=== PATIENT | male | born 2000 | race Hispanic/Latino ===

== ENCOUNTER 2023-01-05 15:37 | Emergency (ER) | payer BC ==
--- OUTSIDE RECORDS SUMMARY | 2023-01-05 15:57 | XMS REPORT | Continuity of Care Document ---
:2000 Author Organization [facility] t Address [address] [facility] [address] [place] [address] Care Team Providers Name Role Phone KAY SCHULZ Primary Care Physician Unavailable KAY SCHULZ Attending Clinician Unavailable Lab, Ang Ayush Graham Attending Clinician Unavailable Zeus COMPUTER ENGINEERING TECHNOLOGISTKay Wilson Attending Clinician Pob, [facility] Main Attending Clinician Unavailable Corry Dan MD Attending Clinician CORRY DAN Attending Clinician Unavailable Doctor Unassigned, [place] Attending Clinician Unavailable DOMINGO KEENAN Attending Clinician Unavailable Lonnie Rosales MD Attending Clinician Domingo Keenan MD Attending Clinician Nurse, Angelo Graham Attending Clinician Unavailable CHAUNCEY EDWARD Attending Clinician Unavailable Chauncey Edward MD Attending Clinician Melissa Regalado MD Attending Clinician MELISSA REGALADO Attending Clinician Unavailable Dominga Hernandez MD Attending Clinician Abigail Stark MD Attending Clinician Unknown, Attending Attending Clinician Unavailable Gm Carr Attending Clinician Salvador Bates Attending Clinician [phone] Dhaval Paul Attending Clinician Payers Payer Name Policy Type Policy Number Effective Date Expiration Date S angelito [employer] [place] - [id number] 2021 00:00:00 OUT OF STATE Problems Condition Condition Condition Status Onset Resolution Last Treating Co mments Source Name Details Category Date Date Treatment Clinician Date Need for Need for Disease Active Unive rs hepatitis hepatitis 12-27 ity of C C 00:00: [place] screening screening 00 Medi sergio test test Branch Wellness Wellness Disease Active Unive rs examinatio examinatio 12-27 it y of n n 00:00: [place] 00 Medical Branch Encounter Encounter Disease Active Uni vers for for 12-27 ity of antibody antibody 00:00: [place] response response 00 Medica l examinatio examinatio Br anch n n Screening- Screening- Disease Active U nivers pulmonary pulmonary 12-27 ity of TB TB 00:00: [place] 00 Medical Branch M23.351 - M23.351 - Diagnosis Active 2016-12-21 Memoria "OTH "OTH 12-08 11:15:00 l MENISCUS MENISCUS 00:01: DONALD Ross, 00 POSTERIO POSTERIO Active 12/08/2016 [facility] HEAD/NECK HEAD/NECK Diagnosis Active 2014-11-11 Memoria INJURY INJURY - 01:38:00 l Active 00:00: [place] 11/10/2014 00 [place] FALL- ARM FALL- Diagnosis Active 2014-05-29 Memoria PAIN ARM PAIN - 17:38:00 l Active 00:00: Ady 05/29/2014 00 [place] 724.5 BACK 724.5 Diagnosis Active 2013-042014-03-09 Memoria PAIN BACK PAIN 1- 08:58:00 l Active 00:00: [place] 02/26/2014 00 [place] FALL FALL Diagnosis Active 2013-042014-02-01 Mem oria Active 10:03:00 l 02/01/2014 00:00: Carlitos farrell 00 [facility] 286.9 286.9 Diagnosis Active 2012-042013-02-17 Mem oria Active 04-19 12:53:00 l 02/17/2013 00:00: Carlitos farrell [address] CERUMEN CERUMEN Diagnosis Active 2012-042013-04-14 Memoria IMPACTION, IMPACTION, 0-15 10:02:00 l NOSEBLEEDS NOSEBLEEDS 00:00: He rmsmith , ACUTE , ACUTE 00 DIGNA DIGNA Active 01/28/2013 [facility] Asthma Asthma Problem Resolve 2016-12-24 Mem oria (disorder) (disorder) d 01:15:49 l Resolved Ady Problem 12/24/2016 [facility], OPID [facility],[facility] Nosebleed/ Nosebleed Problem Active 2016-12-24 Memoria epistaxis /epistaxis 01:15:49 l symptom symptom Ady (finding) (finding) Active Problem 12/24/2016 [facility], SHASHI Donaldsonrey toth,[facility], [facility] COAGULAT COAGULAT Diagnosis Active 2013-02-17 Memoria DEFECT DEFECT 12:53:00 l NEC/NOS NEC/NOS Ady Active [facility] IMPACTED IMPACTED Diagnosis Active 2013-04-14 Memoria CERUMEN CERUMEN 10:02:00 l Active Carlitos farrell [facility] EPISTAXIS EPISTAXIS Diagnosis Active 2013-04-14 Memoria Active 10:02:00 l [facility] ACUTE ACUTE Diagnosis Active 2013-04-14 Mem oria TONSILLITI TONSILLITI 10:02:00 l S S Active Ady [facility] ANKLE ANKLE Diagnosis Active 2013-12-12 Mem oria Active 22:29:00 l [facility] BACK BACK Diagnosis Active 2014-06-10 Mem oria Active 16:48:00 l [facility] BACKACHE BACKACHE Diagnosis Active 2014-03-09 Memoria NOS NOS Active 08:58:00 l [facility] BACK PAIN BACK PAIN Diagnosis Active 2014-04-01 Memoria Active 16:49:00 l [facility] History of Past Illness Condition Condition Condition Status Onset Resolution Last Treating Co mments Source Name Details Category Date Date Treatment Clinician Date Discharge Discharge Problem 2014-11-14 2014-11-14 Memoria Diagnosis: Diagnosis: 11-11 03:33:31 03:33:31 l Minor head Minor head 05:00: He r[place] injury injury 00 without without loss of loss of consciousn consciousn ess ess 11/11/2014 5 [facility] Discharge Discharge Problem 2014-11-14 2014-11-14 Memoria Diagnosis: Diagnosis: 11-11 03:33:31 03:33:31 l Neck pain, Neck pain, 05:00: [place] r[place] musculoske musculoske 00 letal letal 11/11/2014 5 [facility] Discharge Discharge Problem 2014-05-31 2014-05-31 Memoria Diagnosis: Diagnosis: 05-29 20:35:27 20:35:27 l Closed Closed 06:00: [place] Salter-Matti Salter-Matti 00 ris Type ris Type II physeal II physeal fracture fracture of upper of upper end of end of right right radius radius 05/29/2014 05/31/2014 [facility] Discharge Discharge Problem 2013-042014-02-04 2014-02-04 Memoria Diagnosis: Diagnosis: 0- 01:14:00 01:14:00 l Accidental Accidental 05:00: He r[place] fall fall 00 02/01/2014 02/04/2014 [facility] Discharge Discharge Problem 2013-042014-02-04 2014-02-04 Memoria Diagnosis: Diagnosis: 0-19 01:14:00 01:14:00 l Acute neck Acute neck 05:00: [place] r[place] pain pain 00 02/01/2014 02/04/2014 [facility] Allergies, Adverse Reactions, Alerts Allergy Allergy Status Severity Reaction(s) Onset Inactive Treating Comm ents Source Name Type Date Date Clinician NO KNOWN Drug Active Univers ALLERGIE Class ity of [facility] Social History Social Habit Start Date Stop Date Quantity Comments Source History SDOH University o f Alcohol Std Drinks [facility] Branch History [facility] University o f Alcohol Binge [place] [facility] Gender identity Universit y of [facility] Sexual orientation Univer sity [facility] Exposure to 2022-07-10 2022-07-20 Not sure University of SARS-CoV-2 (event) 00:00:00 16:45:00 [facility] Branch Alcohol intake 2022-07-03 2022-07-03 Lifetime University of 00:00:00 00:00:00 non-drinker [facility] (finding) Branch History of Social 2021-12-27 2021-12-27 Univers ity of function 00:00:00 00:00:00 [facility] History SDOH 2018-10-11 2018-10-11 1 University o f Alcohol Frequency 00:00:00 00:00:00 [facility] edical Branch Alcohol Comment 2018-10-11 2018-10-11 has tried it Univers ity of 00:00:00 00:00:00 [facility] Tobacco use and 2018-10-09 2018-10-09 Smokeless Universit y of exposure 00:00:00 00:00:00 tobacco non-user [facility] dical [place] Sex Assigned At [birth year] Universit y of 00:00:00 00:00:00 [facility] Smoking Status Start Date Stop Date Source Social History [facility] Medications Ordered Filled Start Stop Current Ordering Indication Dosage Frequency Signature Comments Components Source Medication Medication Date Date Medication? Clinician (SIG) Name Name NaCl 0.9% 2022- No 1000mL at 999 Uni vers (NS) bolus 07-04 mL/hr, ity of infusion 00:30: 01:25 1,000 mL, Jose as 1,000 mL 00 :00 IV Medical Piggyback, Branch ONCE, 1 dose, On [facility] 07/03/22 at 1930, STAT benztropine 2022- No 2mg 2 mg, Univ ers (COGENTIN) 07-04 Intramuscu it y of injection 2 00:00: 00:25 lar, ONCE, [place] mg 00 :00 1 dose, On [facility] Branch 07/03/22 at 1900, MARYSOL LORazepam 2022- No 2mg 2 mg, Slow U nivers (ATIVAN) 07-03 IV Push, ity of injection 2 23:45: 00:26 [place]CE[place] :[place] dose, On [facility] Branch 07/03/22 at 1900, STAT methocarbam Yes [id number] 500mg Take 1 Univers oL 500 mg 3-20 tablet by ity o f tablet 00:00: mouth [place] 00 every 6 Medical (six) Branch hours as needed (MUSCLE SPASM). methocarbam 2022-0 Yes [id number] 500mg Take 1 Univers oL 500 mg 3-20 tablet by ity o f tablet 00:00: mouth [place] 00 every 6 Medical (six) Branch hours as needed (MUSCLE SPASM). methocarbam 2023-0 Yes [id number] 500mg Take 1 Univers oL 500 mg 3-20 tablet by ity o f tablet 00:00: mouth [place] 00 every 6 Medical (six) Branch hours as needed (MUSCLE SPASM). methocarbam 2023-0 Yes [id number] 500mg Take 1 Univers oL 500 mg 3-20 tablet by ity o f tablet 00:00: mouth [place] 00 every 6 Medical (six) Branch hours as needed (MUSCLE SPASM). methocarbam 2023-0 Yes [id number] 500mg Take 1 Univers oL 500 mg 3-20 tablet by ity o f tablet 00:00: mouth [place] 00 every 6 Medical (six) Branch hours as needed (MUSCLE SPASM). methocarbam 3-0 Yes [id number] 500mg Take 1 Univers oL 500 mg 3-20 tablet by ity o f tablet 00:00: mouth [place] 00 every 6 Medical (six) Branch hours as needed (MUSCLE SPASM). No known 2021-04 No No known Unive rs medications 0-17 medication it y of 07:59: [address] No known No No known Unive rs medications 9-13 medication it y of 09:59: [address] No known No No known Unive rs medications 9-13 medication it y of 09:59: [address] No known No No known Unive rs medications 9-13 medication it y of 09:59: [address] Ibuprofen Yes 400 mg = 1 Me moria 400 MG Oral 11-11 tab, PO, l Tablet 06:14: Q6H, PRN [place] 00 Pain, # 28 tab, 0 Refill(s) Tylenol No Notes: Memoria with 11-11 (acetamino l Codeine 120 04:54: phen-codei [place] mg-12 mg/5 00 ne 120-12 mL oral mg/5 ml liquid oral liq) Do not exceed 4gm/day of acetaminop hen. (Same as: Tylenol w/Codeine) Ibuprofen Yes Special Memor ia 400 MG Oral 2-14 Instructio l Tablet 00:16: ns: Take [place] 00 with food tramadol Yes 50 mg = 1 Darinel arjun hydrochlori 2-14 tab, PO, l de 50 MG 00:16: Q6H, # 12 Herm smith Oral Tablet 00 tab, 0 Refill(s) Acetaminoph No 1 tab, Darinel arjun en 325 MG / 05-29 Route: PO, l Hydrocodone 23:20: Dosing Herm smith Bitartrate 00 Weight 5 MG Oral 51.023, Tablet kg, ONCE, STAT, Start date: 05/29/14 17:20:00, Stop date: 05/29/14 17:20:00 Zofran 2012-04 No Gonzalo 4 mg, Memoria 2-30 Zoran Route: l 21:35: Nesrsta IVP, Drug Roberta nn form: INJ, ONCE, Dosing Weight 42.9, kg, PRN as needed for nausea/vom iting, Start date: 04/14/13 15:35:00 morphine 2012-04 No Gonzalo 1 mg, Memoria Sulfate 2-30 Zoran Route: l 21:04: Nesrsta IVP, ONCE, Herm smith 00 Dosing Weight 42.9, kg, Start date: 04/14/13 15:04:00, Stop date: 04/14/13 15:04:00 morphine 2012-04 No Gonzalo 1 mg, Memoria Sulfate 2-30 Zoran Route: l 20:50: Nesrsta IVP, ONCE, Herm smith 00 Dosing Weight 42.9, kg, Start date: 04/14/13 14:50:00, Stop date: 04/14/13 14:50:00 Zolvit oral 2012-04 No Gonzalo 12 mL, Darinel arjun liquid 2-30 Zoran Route: PO, l 20:45: Nesrsta Dosing [place] 00 Weight 42.9, kg, ONCE, Start date: 04/14/13 14:45:00, Stop date: 04/14/13 14:45:00 midazolam 2012-04 No Amanda 8 mg, Memori a 2-30 Marcie Route: PO, l 20:33: Matuszczak ONCE, Carlitos n 00 Dosing Weight 42.9, kg, Start date: 04/14/13 14:33:00, Stop date: 04/14/13 14:33:00 midazolam 2013-1 No Amanda 15 mg, Dylon ia 2-30 Marcie Route: PO, l 19:04: Serena SOTOSanya 00 Dosing Weight 42.9, kg, Start date: 04/14/13 13:04:00, Duration: 30 day, Stop date: 05/14/13 13:03:00 Immunizations Ordered Immunization Filled Date Status Comments Sour ce Name Immunization Name Twinrix (hep a/hep b) 2022-01-30 Completed Uni versity of 00:00:00 [facility] Twinrix (hep a/hep b) 2022-01-30 Completed Uni versity of 00:00:00 [facility] Twinrix (hep a/hep b) 2022-01-30 Completed Uni versity of 00:00:00 [facility] Twinrix (hep a/hep b) 2022-01-30 Completed Uni versity of 00:00:00 [facility] Twinrix (hep a/hep b) 2022-01-30 Completed Uni versity of 00:00:00 [facility] Twinrix (hep a/hep b) 2022-01-30 Completed Uni versity of 00:00:00 [facility] Twinrix (hep a/hep b) 2022-01-30 Completed Uni versity of 00:00:00 [facility] Influenza Virus 2021-12-29 Completed Universit y of Vaccine Quad IM, 00:00:00 [facility] dical Preserv and ABX Free 6 Br anch MO-64 YRS (FLUCELVAX) Twinrix (hep a/hep b) 2021-12-29 Completed Uni versity of 00:00:00 [facility] Influenza Virus 2021-12-29 Completed Universit y of Vaccine Quad IM, 00:00:00 [facility] dical Preserv and ABX Free 6 Br anch MO-64 YRS Twinrix (hep a/hep b) 2021-12-29 Completed Uni versity of 00:00:00 [facility] Influenza Virus 2021-12-29 Completed Universit y of Vaccine Quad IM, 00:00:00 [facility] dical Preserv and ABX Free 6 Br anch MO-64 YRS Twinrix (hep a/hep b) 2021-12-29 Completed Uni versity of 00:00:00 [facility] Influenza Virus 2021-12-29 Completed Universit y of Vaccine Quad IM, 00:00:00 [place] Me dical Preserv and ABX Free 6 Br anch MO-64 YRS Twinrix (hep a/hep b) 2021-12-29 Completed Uni versity of 00:00:00 [facility] Influenza Virus 2021-12-29 Completed Universit y of Vaccine Quad IM, 00:00:00 [place] Me dical Preserv and ABX Free 6 Br anch MO-64 YRS Twinrix (hep a/hep b) 2021-12-29 Completed Uni versity of 00:00:00 [facility] Influenza Virus 2021-12-29 Completed Universit y of Vaccine Quad IM, 00:00:00 [place] Me dical Preserv and ABX Free 6 Br anch MO-64 YRS Twinrix (hep a/hep b) 2021-12-29 Completed Uni versity of 00:00:00 [facility] Influenza Virus 2021-12-29 Completed Universit y of Vaccine Quad IM, 00:00:00 [place] Me dical Preserv and ABX Free 6 Br anch MO-64 YRS (FLUCELVAX) Twinrix (hep a/hep b) 2021-12-29 Completed Uni versity of 00:00:00 [facility] Influenza Virus 2021-12-29 Completed Universit y of Vaccine Quad IM, 00:00:00 [place] Me dical Preserv and ABX Free 6 Br anch MO-64 YRS (FLUCELVAX) Twinrix (hep a/hep b) 2021-12-29 Completed Uni versity of 00:00:00 [facility] TDAP 2021-12-27 Completed University of 00:00:00 [facility] PPD (TB) 2021-12-27 Completed University of 00:00:00 [facility] TDAP 2021-12-27 Completed University of 00:00:00 [facility] PPD (TB) 2021-12-27 Completed University of 00:00:00 [facility] TDAP 2021-12-27 Completed University of 00:00:00 [facility] PPD (TB) 2021-12-27 Completed University of 00:00:00 [facility] TDAP 2021-12-27 Completed University of 00:00:00 [facility] PPD (TB) 2021-12-27 Completed University of 00:00:00 [facility] TDAP 2021-12-27 Completed University of 00:00:00 [facility] PPD (TB) 2021-12-27 Completed University of 00:00:00 [facility] TDAP 2021-12-27 Completed University of 00:00:00 [facility] PPD (TB) 2021-12-27 Completed University of 00:00:00 [facility] TDAP 2021-12-27 Completed University of 00:00:00 [facility] PPD (TB) 2021-12-27 Completed University of 00:00:00 [facility] TDAP 2021-12-27 Completed University of 00:00:00 [facility] PPD (TB) 2021-12-27 Completed University of 00:00:00 [facility] TDAP 2021-12-27 Completed University of 00:00:00 [facility] PPD (TB) 2021-12-27 Completed University of 00:00:00 [facility] TDAP 2021-12-27 Completed University of 00:00:00 [facility] PPD (TB) 2021-12-27 Completed University of 00:00:00 [facility] Meningococcal 2021-12-05 Completed University of Oligosaccharide 00:00:00 [place] Med ical (groups A, C, Y and Branc h W-135) conjugate vaccine (MCV4O) Meningococcal 2021-12-05 Completed University of Oligosaccharide 00:00:00 [place] Med ical (groups A, C, Y and Branc h W-135) conjugate vaccine (MCV4O) Meningococcal 2021-12-05 Completed University of Oligosaccharide 00:00:00 [place] Med ical (groups A, C, Y and Branc h W-135) conjugate vaccine (MCV4O) Meningococcal 2021-12-05 Completed University of Oligosaccharide 00:00:00 [place] Med ical (groups A, C, Y and Branc h W-135) conjugate vaccine (MCV4O) Meningococcal 2021-12-05 Completed University of Oligosaccharide 00:00:00 [place] Med ical (groups A, C, Y and Branc h W-135) conjugate vaccine (MCV4O) Meningococcal 2021-12-05 Completed University of Oligosaccharide 00:00:00 [place] Med ical (groups A, C, Y and Branc h W-135) conjugate vaccine (MCV4O) Meningococcal 2021-12-05 Completed University of Oligosaccharide 00:00:00 [place] Med ical (groups A, C, Y and Branc h W-135) conjugate vaccine (MCV4O) Meningococcal 2021-12-05 Completed University of Oligosaccharide 00:00:00 [facility] ical (groups A, C, Y and Branc h W-135) conjugate vaccine (MCV4O) Meningococcal 2021-12-05 Completed University of Oligosaccharide 00:00:00 [facility] ical (groups A, C, Y and Branc h W-135) conjugate vaccine (MCV4O) Meningococcal 2021-12-05 Completed University of Oligosaccharide 00:00:00 [facility] ical (groups A, C, Y and Branc h W-135) conjugate vaccine (MCV4O) SARS-COV-2 COVID-19 2020-08-25 Completed Unive rsity of VACCINE - (MODERNA) 00:00:00 [facility] SARS-COV-2 COVID-19 2020-08-25 Completed Unive rsity of VACCINE - (MODERNA) 00:00:00 [facility] SARS-COV-2 COVID-19 2020-08-25 Completed Unive rsity of VACCINE - (MODERNA) 00:00:00 [facility] Moderna COVID-19 Moderna COVID-19 2020-08-25 Completed Vaccine Vaccine 00:00:00 SARS-COV-2 COVID-19 2020-07-28 Completed Unive rsity of VACCINE - (MODERNA) 00:00:00 [facility] SARS-COV-2 COVID-19 2020-07-28 Completed Unive rsity of VACCINE - (MODERNA) 00:00:00 [facility] SARS-COV-2 COVID-19 2020-07-28 Completed Unive rsity of VACCINE - (MODERNA) 00:00:00 [facility] Moderna COVID-19 Moderna COVID-19 2020-07-28 Completed Vaccine Vaccine 00:00:00 PPD (TB) 2018-10-09 Completed University of 00:00:00 [facility] PPD (TB) 2018-10-09 Completed University of 00:00:00 [facility] PPD (TB) 2018-10-09 Completed University of 00:00:00 [facility] PPD (TB) 2018-10-09 Completed University of 00:00:00 [facility] PPD (TB) 2018-10-09 Completed University of 00:00:00 [facility] PPD (TB) 2018-10-09 Completed University of 00:00:00 [facility] PPD (TB) 2018-10-09 Completed University of 00:00:00 [facility] PPD (TB) 2018-10-09 Completed University of 00:00:00 [facility] PPD (TB) 2018-10-09 Completed University of 00:00:00 [facility] PPD (TB) 2018-10-09 Completed University of 00:00:00 [facility] Influenza Virus 2018-03-04 Completed Universit y of Vaccine Quad .5 mL IM 00:00:00 Jose as Medical 6+ MO Branch (FLUZONE/FLULAVAL/FLUA YANELI) Influenza Virus 2018-03-04 Completed Universit y of Vaccine Quad .5 mL IM 00:00:00 [place] Medical 6+ [place] Branch Influenza Virus 2018-03-04 Completed Universit y of Vaccine Quad .5 mL IM 00:00:00 [place] Medical 6+ [place] Branch Influenza Virus 2018-03-04 Completed Universit y of Vaccine Quad .5 mL IM 00:00:00 [place] Medical 6+ [place] Branch Influenza Virus 2018-03-04 Completed Universit y of Vaccine Quad .5 mL IM 00:00:00 [place] as Medical 6+ [place] Branch Influenza Virus 2018-03-04 Completed Universit y of Vaccine Quad .5 mL IM 00:00:00 [place] as Medical 6+ [place] Branch Influenza Virus 2018-03-04 Completed Universit y of Vaccine Quad .5 mL IM 00:00:00 [place] as Medical 6+ [place] Branch Influenza Virus 2018-03-04 Completed Universit y of Vaccine Quad .5 mL IM 00:00:00 [place] as Medical 6+ [place] Branch Influenza Virus 2018-03-04 Completed Universit y of Vaccine Quad .5 mL IM 00:00:00 [place] Medical 6+ [place] Branch (FLUZONE/FLULAVAL/FLUA YANELI) Influenza Virus 2018-03-04 Completed Universit y of Vaccine Quad .5 mL IM 00:00:00 [place] as Medical 6+ [place] Branch (FLUZONE/FLULAVAL/FLUA YANELI) Flu Trivalent 2015-02-16 Completed University of 00:00:00 [facility] Flu Trivalent 2015-02-16 Completed University of 00:00:00 [facility] Flu Trivalent 2015-02-16 Completed University of 00:00:00 [facility] Flu Trivalent 2014-01-26 Completed University of 00:00:00 [facility] Flu Trivalent 2014-01-26 Completed University of 00:00:00 [facility] Flu Trivalent 2014-01-26 Completed University of 00:00:00 [facility] HPV 2013-07-21 Completed University of 00:00:00 [facility] HPV 2013-07-21 Completed University of 00:00:00 [facility] HPV 2013-07-21 Completed University of 00:00:00 [facility] Branch HPV 2013-07-21 Completed University of 00:00:00 [facility] HPV 2013-07-21 Completed University of 00:00:00 [facility] Branch HPV 2013-07-21 Completed University of 00:00:00 [facility] Branch HPV 2013-07-21 Completed University of 00:00:00 [facility] HPV 2013-07-21 Completed University of 00:00:00 [facility] HPV 2013-07-21 Completed University of 00:00:00 [facility] HPV 2013-07-21 Completed University of 00:00:00 [facility] HPV 2013-03-06 Completed University of 00:00:00 [facility] Meningococcal Vaccine 2013-03-06 Completed Uni versity of 00:00:00 [facility] TDAP 2013-03-06 Completed University of 00:00:00 [facility] Meningococcal 2013-03-06 Completed University of Polysaccharide (groups 00:00:00 [place] A, C, Y and W-135) Branch conjugate vaccine (MCV4P) HPV 2013-03-06 Completed University of 00:00:00 [facility] Meningococcal Vaccine 2013-03-06 Completed Uni versity of 00:00:00 [facility] TDAP 2013-03-06 Completed University of 00:00:00 [facility] HPV 2013-03-06 Completed University of 00:00:00 [facility] Meningococcal Vaccine 2013-03-06 Completed Uni versity of 00:00:00 [facility] TDAP 2013-03-06 Completed University of 00:00:00 [facility] HPV 2013-03-06 Completed University of 00:00:00 [facility] Meningococcal Vaccine 2013-03-06 Completed Uni versity of 00:00:00 [facility] Branch TDAP 2013-03-06 Completed University of 00:00:00 [facility] HPV 2013-03-06 Completed University of 00:00:00 [facility] Meningococcal Vaccine 2013-03-06 Completed Uni versity of 00:00:00 [facility] TDAP 2013-03-06 Completed University of 00:00:00 [facility] Branch HPV 2013-03-06 Completed University of 00:00:00 [facility] Meningococcal Vaccine 2013-03-06 Completed Uni versity of 00:00:00 [facility] TDAP 2013-03-06 Completed [facility] of 00:00:00 [facility] HPV 2013-03-06 Completed University of 00:00:00 [facility] Meningococcal Vaccine 2013-03-06 Completed Uni versity of 00:00:00 [facility] TDAP 2013-03-06 Completed University of 00:00:00 [facility] HPV 2013-03-06 Completed University of 00:00:00 [facility] Meningococcal Vaccine 2013-03-06 Completed Uni versity of 00:00:00 [facility] TDAP 2013-03-06 Completed University of 00:00:00 [facility] HPV 2013-03-06 Completed University of 00:00:00 [facility] Meningococcal Vaccine 2013-03-06 Completed Uni versity of 00:00:00 [facility] TDAP 2013-03-06 Completed University of 00:00:00 [facility] Meningococcal 2013-03-06 Completed University of Polysaccharide (groups 00:00:00 [place] [facility] [facility] and W-[facility]) Branch conjugate vaccine (MCV4P) HPV 2013-03-06 Completed University of 00:00:00 [facility] Meningococcal Vaccine 2013-03-06 Completed Uni versity of 00:00:00 [facility] TDAP 2013-03-06 Completed University of 00:00:00 [facility] Meningococcal 2013-03-06 Completed University of Polysaccharide (groups 00:00:00 [facility] [facility], [facility], Y and W-135) Branch conjugate vaccine (MCV4P) Flu Whole Virus 2013-01-22 Completed Universit y of 00:00:00 [facility] Flu Whole Virus 2013-01-22 Completed Universit y of 00:00:00 [facility] Flu Whole Virus 2013-01-22 Completed Universit y of 00:00:00 [facility] HPV 2012-05-09 Completed University of 00:00:00 [facility] HPV 2012-05-09 Completed University of 00:00:00 [facility] HPV 2012-05-09 Completed University of 00:00:00 [facility] HPV 2012-05-09 Completed University of 00:00:00 [facility] HPV 2012-05-09 Completed University of 00:00:00 [facility] HPV 2012-05-09 Completed University of 00:00:00 [facility] HPV 2012-05-09 Completed University of 00:00:00 [facility] HPV 2012-05-09 Completed University of 00:00:00 [facility] HPV 2012-05-09 Completed University of 00:00:00 [facility] HPV 2012-05-09 Completed University of 00:00:00 [facility] Flu Whole Virus 2012-04-02 Completed Universit y of 00:00:00 [facility] Flu Whole Virus 2012-04-02 Completed Universit y of 00:00:00 [facility] Flu Whole Virus 2012-04-02 Completed Universit y of 00:00:00 [facility] Influenza Virus 2011-04-25 Completed Universit y of Vaccine Nasal 00:00:00 [facility] Influenza Virus 2011-04-25 Completed Universit y of Vaccine Nasal 00:00:00 [facility] Influenza Virus 2011-04-25 Completed Universit y of Vaccine Nasal 00:00:00 [facility] Flu Whole Virus 2009-02-08 Completed Universit y of 00:00:00 [facility] Flu Whole Virus 2009-02-08 Completed Universit y of 00:00:00 [facility] Flu Whole Virus 2009-02-08 Completed Universit y of 00:00:00 [facility] Flu Whole Virus 2008-06-01 Completed Universit y of 00:00:00 [facility] Flu Whole Virus 2008-06-01 Completed Universit y of 00:00:00 [facility] Flu Whole Virus 2008-06-01 Completed Universit y of 00:00:00 [facility] Flu Whole Virus 2008-04-24 Completed Universit y of 00:00:00 [facility] Flu Whole Virus 2008-04-24 Completed Universit y of 00:00:00 [facility] Flu Whole Virus 2008-04-24 Completed Universit y of 00:00:00 [facility] Proquad 2006-07-14 Completed University of (MMR/VARICELLA) 00:00:00 [facility] Proquad 2006-07-14 Completed University of (MMR/VARICELLA) [facility] (MMR/VARICELLA) 00:00:00 [facility] Proquad 2006-07-14 Completed University of (MMR/VARICELLA) 00:00:00 [facility] Com[facility] (MMR/VARICELLA) 00:00:00 [facility] 2006-07[facility]14 Com[facility]) [facility] (MMR/VARICELLA) 00:00:00 [facility] Com[facility] (MMR/VARICELLA) 00:00:00 [facility] 2006-07[facility]14 Completed [facility] (MMR[facility]VARICELLA) [facility] (MMR/VARICELLA) 00:00:00 [facility] DTAP 2006-07-04 Completed [facility] of 00:00:00 [facility] HEPATITIS A 2006-07-04 Completed University of 00:00:00 [facility] Polio (IPV/OPV) 2006-07-04 Completed Universit y of 00:00:00 [facility] Proquad 2006-07-04 Completed University of (MMR/VARICELLA) 00:00:00 [facility] Varicella 2006-07-04 Completed [facility] (varivax)([place]icken pox) 00:00:00 [place] [facility] IPV 2006-07-04 Completed University of 00:00:00 [facility] DTaP, Unspecified 2006-07-04 Completed Univers ity of Formulation 00:00:00 [facility] DTAP 2006-07-04 Completed University of 00:00:00 [facility] HEPATITIS A 2006-07-04 Completed University of 00:00:00 [facility] Polio (IPV/OPV) 2006-07-04 Completed Universit y of 00:00:00 [facility] Proquad 2006-07-04 Completed University of (MMR/VARICELLA) 00:00:00 [facility] Varicella 2006-07-04 Completed University of (varivax)(chicken pox) 00:00:00 [facility] DTAP 2006-07-04 Completed University of 00:00:00 [facility] HEPATITIS A 2006-07-04 Completed University of 00:00:00 [facility] Polio (IPV/OPV) 2006-07-04 Completed Universit y of 00:00:00 [facility] Proquad 2006-07-04 Completed University of (MMR/VARICELLA) 00:00:00 [facility] Varicella 2006-07-04 Completed University of (varivax)(chicken pox) 00:00:00 [facility] DTAP 2006-07-04 Completed [facility] of 00:00:00 [facility] HEPATITIS A 2006-07-04 Completed [facility] of 00:00:00 [facility] Polio (IPV/OPV) 2006-07-04 Completed Universit y of 00:00:00 [facility] Proquad 2006-07-04 Completed University of (MMR/VARICELLA) 00:00:00 [facility] Varicella 2006-07-04 Completed University of (varivax)(chicken pox) 00:00:00 [facility] DTAP 2006-07-04 Completed [facility] of 00:00:00 [facility] HEPATITIS A 2006-07-04 Completed [facility] of 00:00:00 [facility] Polio (IPV/OPV) 2006-07-04 Completed Universit y of 00:00:00 [facility] Proquad 2006-07-04 Completed University of (MMR/VARICELLA) 00:00:00 [facility] Varicella 2006-07-04 Completed University of (varivax)(chicken pox) 00:00:00 [facility] DTAP 2006-07-04 Completed [facility] of 00:00:00 [facility] HEPATITIS A 2006-07-04 Completed [facility] of 00:00:00 [facility] Polio (IPV/OPV) 2006-07-04 Completed Universit y of 00:00:00 [facility] Proquad 2006-07-04 Completed University of (MMR/VARICELLA) 00:00:00 [facility] Varicella 2006-07-04 Completed University of (varivax)(chicken pox) 00:00:00 [facility] DTAP 2006-07-04 Completed [facility] of 00:00:00 [facility] HEPATITIS A 2006-07-04 Completed University of 00:00:00 [facility] Polio (IPV/OPV) 2006-07-04 Completed Universit y of 00:00:00 [facility] Proquad 2006-07-04 Completed University of (MMR/VARICELLA) 00:00:00 [facility] Varicella 2006-07-04 Completed University of (varivax)(chicken pox) 00:00:00 [facility] DTAP 2006-07-04 Completed University of 00:00:00 [facility] HEPATITIS A 2006-07-04 Completed [facility] of 00:00:00 [facility] Polio (IPV/OPV) 2006-07-04 Completed Universit y of 00:00:00 [facility] Proquad 2006-07-04 Completed University of (MMR/VARICELLA) 00:00:00 [facility] Varicella 2006-07-04 Completed University of (varivax)(chicken pox) 00:00:00 [facility] DTAP 2006-07-04 Completed [facility] of 00:00:00 [facility] HEPATITIS A 2006-07-04 Completed [facility] of 00:00:00 [facility] Polio (IPV/OPV) 2006-07-04 Completed Universit y of 00:00:00 [facility] Proquad 2006-07-04 Completed University of (MMR/VARICELLA) 00:00:00 [facility] Varicella 2006-07-04 Completed University of (varivax)(chicken pox) 00:00:00 [facility] IPV 2006-07-04 Completed University of 00:00:00 [facility] DTaP, Unspecified 2006-07-04 Completed Univers ity of Formulation 00:00:00 [facility] DTAP 2006-07-04 Completed [facility] of 00:00:00 [facility] HEPATITIS A 2006-07-04 Completed University of 00:00:00 [facility] Polio (IPV/OPV) 2006-07-04 Completed Universit y of 00:00:00 [facility] Proquad 2006-07-04 Completed University of (MMR/VARICELLA) 00:00:00 [facility] Varicella 2006-07-04 Completed [facility] (varivax)(chicken pox) 00:00:00 [place] [facility] IPV 2006-07-04 Completed University of 00:00:00 [facility] DTaP, Unspecified 2006-07-04 Completed Univers ity of Formulation 00:00:00 [facility] HEPATITIS A 2005-12-14 Completed University of 00:00:00 [facility] HEPATITIS A 2005-12-14 Completed [facility] of 00:00:00 [facility] HEPATITIS A 2005-12-14 Completed [facility] of 00:00:00 [facility] HEPATITIS A 2005-12-14 Completed [facility] of 00:00:00 [facility] HEPATITIS A 2005-12-14 Completed [facility] of 00:00:00 [facility] HEPATITIS A 2005-12-14 Completed University of 00:00:00 [facility] HEPATITIS A 2005-12-14 Completed [facility] of 00:00:00 [facility] HEPATITIS A 2005-12-14 Completed University of 00:00:00 [facility] HEPATITIS A 2005-12-14 Completed University of 00:00:00 [facility] HEPATITIS A 2005-12-14 Completed University of 00:00:00 [facility] DTAP 2003-09-23 Completed University of 00:00:00 [facility] HIB 4 Dose Schedule 2003-09-23 Completed Unive rsity of 00:00:00 [facility] Pneumococcal 13 2003-09-23 Completed Universit y of Conjugate, PCV13 00:00:00 [facility] dical (Prevnar 13) Branch Polio (IPV/OPV) 2003-09-23 Completed Universit y of 00:00:00 [facility] IPV 2003-09-23 Completed University of 00:00:00 [facility] Pneumococcal 7 2003-09-23 Completed University of Conjugate, PCV7 00:00:00 [facility] ical (Prevnar7) Branch DTaP, Unspecified 2003-09-23 Completed Univers ity of Formulation 00:00:00 [facility] DTAP 2003-09-23 Completed University of 00:00:00 [facility] HIB 4 Dose Schedule 2003-09-23 Completed Unive rsity of 00:00:00 [facility] Pneumococcal 13 2003-09-23 Completed Universit y of Conjugate, PCV13 00:00:00 [facility] dical (Prevnar 13) Branch Polio (IPV/OPV) 2003-09-23 Completed Universit y of 00:00:00 [facility] DTAP 2003-09-23 Completed University of 00:00:00 [facility] HIB 4 Dose Schedule 2003-09-23 Completed Unive rsity of 00:00:00 [facility] Pneumococcal 13 2003-09-23 Completed Universit y of Conjugate, PCV13 00:00:00 [facility] dical (Prevnar 13) Branch Polio (IPV/OPV) 2003-09-23 Completed Universit y of 00:00:00 [facility] DTAP 2003-09-23 Completed University of 00:00:00 [facility] HIB 4 Dose Schedule 2003-09-23 Completed Unive rsity of 00:00:00 [facility] Pneumococcal 13 2003-09-23 Completed Universit y of Conjugate, PCV13 00:00:00 [facility] dical (Prevnar 13) Branch Polio (IPV/OPV) 2003-09-23 Completed Universit y of 00:00:00 [facility] DTAP 2003-09-23 Completed University of 00:00:00 [facility] HIB 4 Dose Schedule 2003-09-23 Completed Unive rsity of 00:00:00 [facility] Pneumococcal 13 2003-09-23 Completed Universit y of Conjugate, PCV13 00:00:00 [facility] dical (Prevnar 13) Branch Polio (IPV/OPV) 2003-09-23 Completed Universit y of 00:00:00 [facility] DTAP 2003-09-23 Completed University of 00:00:00 [facility] HIB 4 Dose Schedule 2003-09-23 Completed Unive rsity of 00:00:00 [facility] Pneumococcal 13 2003-09-23 Completed Universit y of Conjugate, PCV13 00:00:00 [facility] dical (Prevnar 13) Branch Polio (IPV/OPV) 2003-09-23 Completed Universit y of 00:00:00 [facility] DTAP 2003-09-23 Completed University of 00:00:00 [facility] HIB 4 Dose Schedule 2003-09-23 Completed Unive rsity of 00:00:00 [facility] Pneumococcal 13 2003-09-23 Completed Universit y of Conjugate, PCV13 00:00:00 [facility] dical (Prevnar 13) Branch Polio (IPV/OPV) 2003-09-23 Completed Universit y of 00:00:00 [facility] DTAP 2003-09-23 Completed University of 00:00:00 [facility] HIB 4 Dose Schedule 2003-09-23 Completed Unive rsity of 00:00:00 [facility] Pneumococcal 13 2003-09-23 Completed Universit y of Conjugate, PCV13 00:00:00 [place] [facility] (Prevnar 13) Branch Polio (IPV/OPV) 2003-09-23 Completed Universit y of 00:00:00 [facility] DTAP 2003-09-23 Completed [facility] of 00:00:00 [facility] HIB 4 Dose Schedule 2003-09-23 Completed Unive rsity of 00:00:00 [facility] Pneumococcal 13 2003-09-23 Completed Universit y of Conjugate, PCV13 00:00:00 [facility] dical (Prevnar 13) Branch Polio (IPV/OPV) 2003-09-23 Completed Universit y of 00:00:00 [facility] IPV 2003-09-23 Completed University of 00:00:00 [facility] Pneumococcal 7 2003-09-23 Completed University of Conjugate, PCV7 00:00:00 [place] [facility] (Prevnar7) Branch DTaP, Unspecified 2003-09-23 Completed Univers ity of Formulation 00:00:00 [facility] DTAP 2003-09-23 Completed University of 00:00:00 [facility] HIB 4 Dose Schedule 2003-09-23 Completed Unive rsity of 00:00:00 [facility] Pneumococcal 13 2003-09-23 Completed Universit y of Conjugate, PCV13 00:00:00 [facility] dical (Prevnar 13) Branch Polio (IPV/OPV) 2003-09-23 Completed Universit y of 00:00:00 [facility] IPV 2003-09-23 Completed University of 00:00:00 [facility] Pneumococcal 7 2003-09-23 Completed University of Conjugate, PCV7 00:00:00 [place] [facility] (Prevnar7) [facility] DTaP, Unspecified 2003-09-23 Completed Univers ity of Formulation 00:00:00 [facility] Pneumococcal 13 2002 Completed Universit y of Conjugate, PCV13 00:00:00 [place] [facility] (Prevnar 13) Branch Pneumococcal 7 2002 Completed [facility] of Conjugate, PCV7 00:00:00 [place] [facility] (Prevnar7) [facility] Pneumococcal 13 2002 Completed [facility]it y of Conjugate, PCV13 00:00:00 [place] [facility] (Prevnar 13) [facility] Pneumococcal 13 2002 Completed [facility] y of Conjugate, PCV13 00:00:00 [place] [facility] (Prevnar 13) [facility] Pneumococcal 13 2002 Completed [facility] y of Conjugate, PCV13 00:00:00 [place] [facility] (Prevnar 13) [facility] Pneumococcal 13 2002 Completed [facility]it y of Conjugate, PCV13 00:00:00 [place] [facility] (Prevnar 13) [facility] Pneumococcal 13 2002 Completed [facility]it y of Conjugate, PCV13 00:00:00 [place] [facility] (Prevnar 13) Branch Pneumococcal 13 2002 Completed [facility]it y of Conjugate, PCV13 00:00:00 [place] [facility] (Prevnar 13) [facility] Pneumococcal 13 2002 Completed [facility]it y of Conjugate, PCV13 00:00:00 [place] [facility] (Prevnar 13) [facility] Pneumococcal 13 2002 Completed Universit y of Conjugate, PCV13 00:00:00 [place] [facility] (Prevnar 13) Branch Pneumococcal 7 2002 Completed [facility] of Conjugate, PCV7 00:00:00 [place] [facility] (Prevnar7) [facility] Pneumococcal 13 2002 Completed Universit y of Conjugate, PCV13 00:00:00 [place] [facility] (Prevnar 13) [facility] Pneumococcal 7 2002 Completed [facility] of Conjugate, PCV7 00:00:00 [place] [facility] (Prevnar7) [facility] DTAP 2002 Completed [facility] 00:00:00 [facility] HIB 4 Dose Schedule 2002 Completed Unive rsity of 00:00:00 [facility] Hep B, Adol or Pedi 2002 Completed Unive rsity of Dosage 00:00:00 [facility] Pneumococcal 13 2002 Completed Universit y of Conjugate, PCV13 00:00:00 [place] [facility] (Prevnar 13) Branch Polio (IPV/OPV) 2002 Completed Univers[facility] y of 00:00:00 [facility] IPV 2002 Completed [facility] of 00:00:00 [facility] Pneumococcal 7 2002 Completed University of Conjugate, PCV7 00:00:00 [place] [facility] (Prevnar7) [facility] DTaP, Unspecified 2002 Completed Univers ity of Formulation 00:00:00 [facility] DTAP 2002 Completed [facility] 00:00:00 [facility] HIB 4 Dose Schedule 2002 Completed Unive rsity of 00:00:00 [facility] Hep B, Adol or Pedi 2002 Completed Unive rsity of Dosage 00:00:00 [facility] Pneumococcal 13 2002 Completed Universit y of Conjugate, PCV13 00:00:00 [facility] dical (Prevnar 13) Branch Polio (IPV/OPV) 2002 Completed Universit y of 00:00:00 [facility] DTAP 2002 Completed [facility] 00:00:00 [facility] HIB 4 Dose Schedule 2002 Completed Unive rsity of 00:00:00 [facility] Hep B, Adol or Pedi 2002 Completed Unive rsity of Dosage 00:00:00 [facility] Pneumococcal 13 2002 Completed Universit y of Conjugate, PCV13 00:00:00 [facility] dical (Prevnar 13) Branch Polio (IPV/OPV) 2002 Completed Universit y of 00:00:00 [facility] DTAP 2002 Completed [facility] of 00:00:00 [facility] HIB 4 Dose Schedule 2002 Completed Unive rsity of 00:00:00 [facility] Hep B, Adol or Pedi 2002 Completed Unive rsity of Dosage 00:00:00 [facility] Pneumococcal 13 2002 Completed Universit y of Conjugate, PCV13 00:00:00 [facility] dical (Prevnar 13) Branch Polio (IPV/OPV) 2002 Completed Universit y of 00:00:00 [facility] DTAP 2002 Completed [facility] 00:00:00 [facility] HIB 4 Dose Schedule 2002 Completed Unive rsity of 00:00:00 [facility] Hep B, Adol or Pedi 2002 Completed Unive rsity of Dosage 00:00:00 [facility] Pneumococcal 13 2002 Completed Universit y of Conjugate, PCV13 00:00:00 [place] [facility] (Prevnar 13) [facility] Polio (IPV/OPV) 2002 Completed Universit y of 00:00:00 [facility] DTAP 2002 Completed [facility] of 00:00:00 [facility] HIB 4 Dose Schedule 2002 Completed Unive rsity of 00:00:00 [facility] Hep B, Adol or Pedi 2002 Completed Unive rsity of Dosage 00:00:00 [facility] Pneumococcal 13 2002 Completed Universit y of Conjugate, PCV13 00:00:00 [facility] dical (Prevnar 13) Branch Polio (IPV/OPV) 2002 Completed Universit y of 00:00:00 [facility] DTAP 2002 Completed [facility] of 00:00:00 [facility] HIB 4 Dose Schedule 2002 Completed Unive rsity of 00:00:00 [facility] Hep B, Adol or Pedi 2002 Completed Unive rsity of Dosage 00:00:00 [facility] Pneumococcal 13 2002 Completed Universit y of Conjugate, PCV13 00:00:00 [facility] dical (Prevnar 13) Branch Polio (IPV/OPV) 2002 Completed Universit y of 00:00:00 [facility] DTAP 2002 Completed University of 00:00:00 [facility] HIB 4 Dose Schedule 2002 Completed Unive rsity of 00:00:00 [facility] Hep B, Adol or Pedi 2002 Completed Unive rsity of Dosage 00:00:00 [facility] Pneumococcal 13 2002 Completed Universit y of Conjugate, PCV13 00:00:00 [facility] dical (Prevnar 13) Branch Polio (IPV/OPV) 2002 Completed Universit y of 00:00:00 [facility] DTAP 2002 Completed University of 00:00:00 [facility] HIB 4 Dose Schedule 2002 Completed Unive rsity of 00:00:00 [facility] Hep B, Adol or Pedi 2002 Completed Unive rsity of Dosage 00:00:00 [facility] Pneumococcal 13 2002 Completed Universit y of Conjugate, PCV13 00:00:00 [facility] dical (Prevnar 13) Branch Polio (IPV/OPV) 2002 Completed Universit [facility] of 00:00:00 [facility] IPV 2002 Completed [facility] of 00:00:00 [facility] Pneumococcal 7 2002 Completed University of Conjugate, PCV7 00:00:00 [place] [facility] (Prevnar7) [facility] DTaP, Unspecified 2002 Completed Univers ity of Formulation 00:00:00 [facility] DTAP 2002 Completed [facility] of 00:00:00 [facility] HIB 4 Dose Schedule 2002 Completed Unive rsity of 00:00:00 [facility] Hep B, Adol or Pedi 2002 Completed Unive rsity of Dosage 00:00:00 [facility] Pneumococcal 13 2002 Completed Universit y of Conjugate, PCV13 00:00:00 [facility] dical (Prevnar 13) Branch Polio (IPV/OPV) 2002 Completed Universit [facility] of 00:00:00 [facility] IPV 2002 Completed University of 00:00:00 [facility] Pneumococcal 7 2002 Completed University of Conjugate, PCV7 00:00:00 [facility] ical (Prevnar7) Branch DTaP, Unspecified 2002 Completed Univers ity of Formulation 00:00:00 [facility] DTAP 2002 Completed University of 00:00:00 [facility] HIB 4 Dose Schedule 2002 Completed Unive rsity of 00:00:00 [facility] Polio (IPV/OPV) 2002 Completed Univers[facility] of 00:00:00 [facility] IPV 2002 Completed University of 00:00:00 [facility] DTaP, Unspecified 2002 Completed Univers ity of Formulation 00:00:00 [facility] DTAP 2002 Completed University of 00:00:00 [facility] HIB 4 Dose Schedule 2002 Completed Unive rsity of 00:00:00 [facility] Polio (IPV/OPV) 2002 Completed Universit y of 00:00:00 [facility] DTAP 2002 Completed University of 00:00:00 [facility] HIB 4 Dose Schedule 2002 Completed Unive rsity of 00:00:00 [facility] Polio (IPV/OPV) 2002 Completed Universit y of 00:00:00 [facility] DTAP 2002 Completed University of 00:00:00 [facility] HIB 4 Dose Schedule 2002 Completed Unive rsity of 00:00:00 [facility] Polio (IPV/OPV) 2002 Completed Universit y of 00:00:00 [facility] DTAP 2002 Completed University of 00:00:00 [facility] HIB 4 Dose Schedule 2002 Completed Unive rsity of 00:00:00 [facility] Polio (IPV/OPV) 2002 Completed Universit y of 00:00:00 [facility] DTAP 2002 Completed University of 00:00:00 [facility] HIB 4 Dose Schedule 2002 Completed Unive rsity of 00:00:00 [facility] Polio (IPV/OPV) 2002 Completed Universit y of 00:00:00 [facility] DTAP 2002 Completed University of 00:00:00 [facility] HIB 4 Dose Schedule 2002 Completed Unive rsity of 00:00:00 [facility] Polio (IPV/OPV) 2002 Completed Universit y of 00:00:00 [facility] DTAP 2002 Completed University of 00:00:00 [facility] HIB 4 Dose Schedule 2002 Completed Unive rsity of 00:00:00 [facility] Polio (IPV/OPV) 2002 Completed Universit y of 00:00:00 [facility] DTAP 2002 Completed University of 00:00:00 [facility] HIB 4 Dose Schedule 2002 Completed Unive rsity of 00:00:00 [facility] Polio (IPV/OPV) 2002 Completed Universit y of 00:00:00 [facility] IPV 2002 Completed University of 00:00:00 [facility] DTaP, Unspecified 2002 Completed Univers ity of Formulation 00:00:00 [facility] DTAP 2002 Completed University of 00:00:00 [facility] HIB 4 Dose Schedule 2002 Completed Unive rsity of 00:00:00 [facility] Polio (IPV/OPV) 2002 Completed Universit y of 00:00:00 [facility] IPV 2002 Completed University of 00:00:00 [facility] DTaP, Unspecified 2002 Completed Univers ity of Formulation 00:00:00 [facility] DTAP 2002 Completed University of 00:00:00 [facility] HIB 4 Dose Schedule 2002 Completed Unive rsity of 00:00:00 [facility] Hep B, Adol or Pedi 2002 Completed Unive rsity of Dosage 00:00:00 [facility] Pneumococcal 13 2002 Completed Universit y of Conjugate, PCV13 00:00:00 [facility] dical (Prevnar 13) Branch Polio (IPV/OPV) 2002 Completed Universit y of 00:00:00 [facility] IPV 2002 Completed University of 00:00:00 [facility] Pneumococcal 7 2002 Completed University of Conjugate, PCV7 00:00:00 [facility] ical (Prevnar7) Branch DTaP, Unspecified 2002 Completed Univers ity of Formulation 00:00:00 [facility] DTAP 2002 Completed University of 00:00:00 [facility] HIB 4 Dose Schedule 2002 Completed Unive rsity of 00:00:00 [facility] Hep B, Adol or Pedi 2002 Completed Unive rsity of Dosage 00:00:00 [facility] Pneumococcal 13 2002 Completed Universit y of Conjugate, PCV13 00:00:00 [facility] dical (Prevnar 13) Branch Polio (IPV/OPV) 2002 Completed Universit y of 00:00:00 [facility] DTAP 2002 Completed University of 00:00:00 [facility] HIB 4 Dose Schedule 2002 Completed Unive rsity of 00:00:00 [facility] Hep B, Adol or Pedi 2002 Completed Unive rsity of Dosage 00:00:00 [facility] Pneumococcal 13 2002 Completed Universit y of Conjugate, PCV13 00:00:00 [facility] dical (Prevnar 13) Branch Polio (IPV/OPV) 2002 Completed Universit y of 00:00:00 [facility] DTAP 2002 Completed University of 00:00:00 [facility] HIB 4 Dose Schedule 2002 Completed Unive rsity of 00:00:00 [facility] Hep B, Adol or Pedi 2002 Completed Unive rsity of Dosage 00:00:00 [facility] Pneumococcal 13 2002 Completed Universit y of Conjugate, PCV13 00:00:00 [facility] dical (Prevnar 13) Branch Polio (IPV/OPV) 2002 Completed Universit y of 00:00:00 [facility] DTAP 2002 Completed University of 00:00:00 [facility] HIB 4 Dose Schedule 2002 Completed Unive rsity of 00:00:00 [facility] Hep B, Adol or Pedi 2002 Completed Unive rsity of Dosage 00:00:00 [facility] Pneumococcal 13 2002 Completed Universit y of Conjugate, PCV13 00:00:00 [facility] dical (Prevnar 13) Branch Polio (IPV/OPV) 2002 Completed Universit y of 00:00:00 [facility] DTAP 2002 Completed University of 00:00:00 [facility] HIB 4 Dose Schedule 2002 Completed Unive rsity of 00:00:00 [facility] Hep B, Adol or Pedi 2002 Completed Unive rsity of Dosage 00:00:00 [facility] Pneumococcal 13 2002 Completed Universit y of Conjugate, PCV13 00:00:00 [facility] dical (Prevnar 13) Branch Polio (IPV/OPV) 2002 Completed Universit y of 00:00:00 [facility] DTAP 2002 Completed University of 00:00:00 [facility] HIB 4 Dose Schedule 2002 Completed Unive rsity of 00:00:00 [facility] Hep B, Adol or Pedi 2002 Completed Unive rsity of Dosage 00:00:00 [facility] Pneumococcal 13 2002 Completed Universit y of Conjugate, PCV13 00:00:00 [facility] dical (Prevnar 13) Branch Polio (IPV/OPV) 2002 Completed Universit y of 00:00:00 [facility] DTAP 2002 Completed University of 00:00:00 [facility] HIB 4 Dose Schedule 2002 Completed Unive rsity of 00:00:00 [facility] Hep B, Adol or Pedi 2002 Completed Unive rsity of Dosage 00:00:00 [facility] Pneumococcal 13 2002 Completed Universit y of Conjugate, PCV13 00:00:00 [facility] dical (Prevnar 13) Branch Polio (IPV/OPV) 2002 Completed Universit y of 00:00:00 [facility] DTAP 2002 Completed University of 00:00:00 [facility] HIB 4 Dose Schedule 2002 Completed Unive rsity of 00:00:00 [facility] Hep B, Adol or Pedi 2002 Completed Unive rsity of Dosage 00:00:00 [facility] Pneumococcal 13 2002 Completed Universit y of Conjugate, PCV13 00:00:00 [facility] dical (Prevnar 13) Branch Polio (IPV/OPV) 2002 Completed Universit y of 00:00:00 [facility] IPV 2002 Completed University of 00:00:00 [facility] Pneumococcal 7 2002 Completed University of Conjugate, PCV7 00:00:00 [place] [facility] (Prevnar7) Branch DTaP, Unspecified 2002 Completed Univers ity of Formulation 00:00:00 [facility] DTAP 2002 Completed University of 00:00:00 [facility] HIB 4 Dose Schedule 2002 Completed Unive rsity of 00:00:00 [facility] Hep B, Adol or Pedi 2002 Completed Unive rsity of Dosage 00:00:00 [facility] Pneumococcal 13 2002 Completed Universit y of Conjugate, PCV13 00:00:00 [facility] dical (Prevnar 13) Branch Polio (IPV/OPV) 2002 Completed Universit y of 00:00:00 [facility] IPV 2002 Completed University of 00:00:00 [facility] Pneumococcal 7 2002 Completed [facility] Conjugate, PCV7 00:00:00 [place] [facility] (Prevnar7) Branch DTaP, Unspecified 2002 Completed Univers ity of Formulation 00:00:00 [facility] Hep B, Adol or Pedi 2002 Completed Unive rsity of Dosage 00:00:00 [facility] Hep B, Adol or Pedi 2002 Completed Unive rsity of Dosage 00:00:00 [facility] Hep B, Adol or Pedi 2002 Completed Unive rsity of Dosage 00:00:00 [facility] Hep B, Adol or Pedi 2002 Completed Unive rsity of Dosage 00:00:00 [facility] Hep B, Adol or Pedi 2002 Completed Unive rsity of Dosage 00:00:00 [facility] Hep B, Adol or Pedi 2002 Completed Unive rsity of Dosage 00:00:00 [facility] Hep B, Adol or Pedi 2002 Completed Unive rsity of Dosage 00:00:00 [facility] Hep B, Adol or Pedi 2002 Completed Unive rsity of Dosage 00:00:00 [facility] Hep B, Adol or Pedi 2002 Completed Unive rsity of Dosage 00:00:00 [facility] Hep B, Adol or Pedi 2002 Completed Unive rsity of Dosage 00:00:00 [facility] Vital Signs Vital Name Observation Time Observation Value Comments Source Systolic blood 2022-07-04 02:00:00 116 mm[Hg] Univer sity of pressure [facility] Diastolic blood 2022-07-04 02:00:00 63 mm[Hg] Unive rsity of pressure [facility] Heart rate 2022-07-04 02:00:00 73 /min Universi ty of [facility] Respiratory rate 2022-07-04 02:00:00 19 /min Univ ersity of [facility] Oxygen saturation in 2022-07-04 02:00:00 99 /min [facility] Arterial blood by [facility] Pulse oximetry Branch Body temperature 2022-07-03 23:37:00 36.5 [facility] Body height 2022-07-03 23:37:00 167.6 cm Universi ty of [facility] Body weight 2022-07-03 23:37:00 86.183 kg Universi ty of [facility] BMI 2022-07-03 23:37:00 30.67 kg/m2 Universi ty [facility] Systolic blood 2021-12-27 14:47:00 110 mm[Hg] Univer sity of pressure [facility] Diastolic blood 2021-12-27 14:47:00 69 mm[Hg] Unive rsity of [facility] Heart rate 2021-12-27 14:47:00 61 /min Universi ty of [facility] Body temperature 2021-12-27 14:47:00 36.83 Anna [facility] Body height 2021-12-27 14:47:00 168.9 cm Universi ty of [facility] Body weight 2021-12-27 14:47:00 86.229 kg Universi ty of [facility] BMI 2021-12-27 14:47:00 30.22 kg/m2 Universi ty [facility] Oxygen saturation in 2021-12-27 14:47:00 99 /min [facility] Arterial blood by [facility] Pulse oximetry Branch Heart Rate 2014-11-11 07:09:00 [facility] Temperature Oral (F) 2014-11-11 07:09:00 98.5 F [facility] Systolic (mm Hg) 2014-11-11 07:09:00 Darinelarabella Garsia Diastolic (mm Hg) 2014-11-11 07:09:00 [facility] Respitory Rate 2014-11-11 07:09:00 [facility] [place] Weight 2014-11-11 04:07:00 [facility] Height 2014-11-11 04:07:00 157.48 cm [facility] Temperature Oral (F) 2014-11-11 04:07:00 99.7 F [facility] Respitory Rate 2014-11-11 04:07:00 [facility] Heart Rate 2014-11-11 04:07:00 [facility] BMI Calculated 2014-11-11 04:07:00 [facility] Systolic (mm Hg) 2014-11-11 04:07:00 Darinel [facility] [place] Diastolic (mm Hg) 2014-11-11 04:07:00 Mem [facility] Systolic (mm Hg) 2014-05-30 00:10:00 Darinel [facility] Diastolic (mm Hg) 2014-05-30 00:10:00 [facility] [place] Heart Rate 2014-05-30 00:10:00 [facility] Respitory Rate 2014-05-30 00:10:00 [facility] [place] Temperature Oral (F) 2014-05-30 00:10:00 98.1 F [facility] Respitory Rate 2014-05-29 23:06:00 [facility] [place] Temperature Oral (F) 2014-05-29 23:06:00 98.5 F [facility] Diastolic (mm Hg) 2014-05-29 23:06:00 [facility] [place] Heart Rate 2014-05-29 23:06:00 [facility] Systolic (mm Hg) 2014-05-29 23:06:00 [facility]inel [facility] [place] Height 2014-05-29 23:06:00 154.94 cm [facility] Weight 2014-05-29 23:06:00 [facility] BMI Calculated 2014-05-29 23:06:00 [facility] Respitory Rate 2014-02-01 15:35:00 [facility] Heart Rate 2014-02-01 15:35:00 [facility] Diastolic (mm Hg) 2014-02-01 15:35:00 [facility] Systolic (mm Hg) 2014-02-01 15:35:00 [facility]inel [facility] [place] Temperature Oral (F) 2014-02-01 15:35:00 98.0 F [facility] Weight 2014-02-01 13:19:00 [facility] Height 2014-02-01 13:19:00 152.4 cm [facility] BMI Calculated 2014-02-01 13:19:00 [facility] [place] Systolic (mm Hg) 2014-02-01 13:19:00 Darinel [facility] Temperature Oral (F) 2014-02-01 13:19:00 97.7 F [facility] Diastolic (mm Hg) 2014-02-01 13:19:00 [facility] [place] Heart Rate 2014-02-01 13:19:00 [facility] Respitory Rate 2014-02-01 13:19:00 [facility] [place] Systolic (mm Hg) 2013-04-14 22:00:00 Darinel [facility] [place] Diastolic (mm Hg) 2013-04-14 22:00:00 [facility] [place] Respitory Rate 2013-04-14 22:00:00 [facility] [place] Systolic (mm Hg) 2013-04-14 21:45:00 Darinel [facility] [place] Diastolic (mm Hg) 2013-04-14 21:45:00 [facility] [place] Respitory Rate 2013-04-14 21:45:00 [facility] [place] Systolic (mm Hg) 2013-04-14 21:30:00 Darinel [facility] [place] Diastolic (mm Hg) 2013-04-14 21:30:00 Mem [facility] Respitory Rate 2013-04-14 21:30:00 [facility] [place] Weight 2013-04-14 17:04:00 [facility] Height 2013-04-14 17:04:00 141 cm [facility] Weight 2013-04-07 20:13:00 [facility] Height 2013-04-07 20:13:00 142.24 cm [facility] Procedure Date / Time Performing Clinician Source Performed CBC WITH DIFF 2022-07-21 13:23:00 Viviana Beatrice [facility] PHYSICIAN ORDERS 2022-07-21 05:01:00 Doctor Unassigned, No Unive [facility] URINE DRUG (IMMUNOASSAY) 2022-07-04 00:14:00 [facility] SCREEN URINALYSIS 2022-07-04 00:14:00 Lonnie Rosales [facility] CREATINE KINASE 2022-07-03 23:53:00 Lonnie Rosales [facility] MAGNESIUM 2022-07-03 23:53:00 Lonnie Rosales [facility] COMP. METABOLIC PANEL 2022-07-03 23:53:00 Lonnie Rosales [facility] ([id number]) [facility] CBC WITH DIFF 2022-07-03 23:53:00 Lonnie Rosales [facility] [place] (HEP A/HEP 2022-01-30 12:59:13 Doctor Unassigned, No Uni vers[facility] of [place] B)VACCINE Name Medical Branch [place] (HEP A/HEP 2021-12-29 15:41:41 Kay Schulz of [place] B)VACCINE Medical Branch FLU VACC ([id number]), 6 2021-12-29 15:40:48 Doctor Unassigned, N o [facility] MO-64 YRS, .5ML, IM, Name Medical [facility] QUAD (FLUCELVAX) PPD (TB) 2021-12-27 15:34:11 Kay Schulz [place] f [facility] TDAP VACCINE, >11 YRS, 2021-12-27 15:22:33 [facility] Tonsillectomy with [facility] adenoidectomy Encounters Start End Encounter Admission Attending Care Care Encounter Source Date/Time Date/Time Type Type Clinicians Facility Department ID 2022-12-25 2022-12-25 Outpatient R [facility] [id number] Univers 15:30:00 17:02:[address] [facility] 2022-12-25 2022-12-25 Nba Player Lab, Ang - Db [facility] [id number] Univers 15:30:00 15:45:[address] [facility] [id number] ity [facility] [id number] Jose as ZACK?BLEA [phone] [facility] [address] MEDICAL OFFICE BUILDING 2022-12-22 2022-12-22 Telephone Zeus [facility] [id number] Univers 00:00:00 00:00:00 Kay UrbanBuz [id number] it y of [place] [id number] Jose as ZACK?BLEA [phone] [facility] [address] MEDICAL OFFICE BUILDING 2022-07-21 2022-07-21 Nba Player Bruno, Chase Lab Main [facility] [id number] [id number] Univers 08:15:00 08:30:00 Visit Corry Dan [id number] ity of [facility] [id number] [phone] Me dical NAL [address] [facility] 2022-07-21 2022-07-21 Outpatient R [facility] [id number] Univers 08:15:00 08:15:00 ity of [facility] 2022-07-21 2022-07-21 Outpatient R NI, [facility] [id number] Univers 08:15:00 08:15:[address] [facility] 2022-07-21 2022-07-21 Orders Doctor TERRY [id number] Univers 00:00:00 00:00:00 Only Unassigned, JEREMY [id number] ity of [facility] [id number] Jose as [phone] [facility] [address] 2022-07-03 2022-07-03 Emergency X BRINDA [facility] ERT [id number] Univers 18:33:00 21:21:00 [facility] 2022-07-03 2022-07-03 Emergency Lonnie Rosales [facility] 1.2.840 .114 [id number] Univers 18:33:00 21:21:00 Domingo Keenan [id number] ity [facility] [id number] [phone] [facility] [address] 2022-03-29 2022-03-29 Outpatient R ZEUS, [facility] [id number] Univers 11:00:00 11:00:[address] [facility] 2022-01-30 2022-01-30 Nurse Nurse, Angelo Graham [facility] [id number] Univers 08:00:00 08:20:00 Visit Kay Schulz [id number] ity [facility] [id number] Jose as ZACK?BLEA [phone] Ar arnoldo ROSA MARIA [address] MEDICAL OFFICE [facility] 2022-01-30 2022-01-30 Outpatient R [facility] [id number] Univers 08:00:00 08:00:[address] [facility] 2021-12-29 2021-12-29 Nurse Nurse, Angelo Graham [facility] [id number] Univers 10:40:00 11:00:00 Visit Kay Schulz [id number] ity [facility] [id number] Jose as ZACK?BLEA [phone] [address] OFFICE [facility] 2021-12-29 2021-12-29 Outpatient R [facility]US [facility] [id number] Univers 10:40:00 10:40:[address] [facility] 2021-12-29 2021-12-29 Outpatient R [facility] [id number] Univers 10:40:00 10:40:[address] [facility] 2021-12-29 2021-12-29 Outpatient R [facility] [id number] Univers 10:40:00 10:40:00 KAY [facility] 2021-12-27 2021-12-27 Nba Player Lab, Angelo Graham [facility] 1.2.840.1 [id number] Univers 10:45:00 11:00:[address] [facility] [id number] ity of [place] [id number] Jose as ZACK?BLEA [phone] [facility] OFFICE [facility] 2021-12-27 2021-12-27 [facility] [id number] Univers 10:45:00 10:45:[address] [facility] 2021-12-27 2021-12-27 Outpatient R [facility]EUS [facility] [id number] Univers 10:00:00 10:37:[address] [facility] 2021-12-27 2021-12-27 [facility] 1.2.840.114 [id number] Univers 10:00:00 10:37:[address] [facility] [id number] it y [facility] [id number] Jose as ZACK?BLEA [phone] [address] OFFICE [facility] 2021-12-27 2021-12-27 Outpatient R ZEUS [facility] [id number] Univers 10:00:00 10:37:[address] [facility] 2021-12-27 2021-12-27 Telephone Zeus [facility] [id number] Univers 00:00:00 00:00:00 Kay HEALTH [id number] it y of [facility] [id number] Jose as ZACK?BLEA [phone] [address] OFFICE [facility] 2021-12-23 2021-12-23 Telephone Zeus [facility] [id number] [id number] Univers 00:00:00 00:00:00 Kay FRANCOIS [id number] it y of [place] [id number] Jose as ZACK?BLEA [phone] [address] 2021-12-21 2021-12-21 Outpatient R ZEUS [facility] [id number] Univers 15:00:00 15:00:[address] [facility] 2021-12-05 2021-12-05 Outpatient R CHEYANNE [facility] [id number] Univers 14:00:00 14:37:[address] [facility] 2021-12-05 2021-12-05 Outpatient Jeff EDWARD [facility] [id number] Univers 14:00:00 14:37:[address] [facility] 2021-12-05 2021-12-05 Outpatient Jeff EDWARD [facility] [id number] Univers 14:00:00 14:37:[address] [facility] 2021-12-05 2021-12-05 Nurse Nurse, Angelo Graham [facility] 1.2.840.114 [id number] Univers 14:00:00 14:20:00 Visit Chauncey Edward [id number] ity of [facility] [id number] Jose as ZACK?BLEA [phone] [address] 2020-08-25 2020-08-25 Outpatient GCCOVIDV GCCOVIDV [id number] GCCOVID 00:00:00 00:00:00 V 2020-07-28 2020-07-28 Outpatient GCCOVIDV GCCOVIDV [id number] GCCOVID 00:00:00 00:00:00 V 2020-01-23 2020-01-23 [facility] 1.2.138.998 [id number] Univers 10:13:49 10:50:13 Visit Melissa [facility] [id number] it y of Surgical [id number] Jose as Specialti [phone] Me dical es [address] [facility] 2020-01-23 2020-01-23 [facility] [id number] Univers 10:30:00 10:30:[address] [facility] 2020-01-23 2020-01-23 Letter [facility] [id number] Univers 00:00:00 00:00:00 (Out) Melissa Marquis [facility] [id number] it y of Surgical [id number] Jose as Specialti [phone] Me dical es 198 [facility] 2018-12-13 2018-12-13 Telephone [facility] [id number] Univers 00:00:00 00:00:00 Dominga [facility] [id number] i ty of Specialty [place].7.2.686 [place] - [phone] [facility] [address] 2018-12-12 2018-12-12 Urgent Abigail Stark [facility] 1.2. 840.114 [id number] Univers 19:11:34 19:26:34 Care Unknown, Attending Health [id number] ity of Surgical 4.2.7.2.686 Jose as Specialti [phone] Me dical es [address] [facility] 2018-12-12 2018-12-12 Orders Doctor MARA 1.2.840.114 [id number] Univers 00:00:00 00:00:00 Only Unassigned, JEREMY [id number] ity of [facility] 4.2.7.2.686 Jose as [phone] [address] 2016-12-21 2016-12-22 Outpt Diag nullFlavo [facility] [id number] Memoria 16:06:00 04:59:00 Services r [facility] 02 [facility] 2016-12-21 2016-12-21 Outpatient Bruno, 2.16.840. 2.16.840.1. 4 [id number] 11:06:00 23:59:00 Gm [id number] Ahmed [id number] 5.24 2014-11-11 2014-11-11 EC nullFlavo [facility] [id number] Memoria 03:54:00 07:11:00 Emergency [facility] 06 [facility] 2014-11-10 2014-11-11 Outpatient Jana TACO [facility] [id number] 22:54:00 02:11:00 Salvador [facility] 2014-05-11 2014-06-10 OP Therapy nullFlavo [facility] [id number] Memoria 22:00:00 05:59:00 Patients r [facility] 04 [facility] 2014-05-11 2014-06-09 Outpatient Younas, 2.16.840. 2.16.840.1. 4 [id number] 16:00:00 23:59:00 Gm [id number] 04 Ahmed 3.615.0.1 5.0.207 [id number] 2014-05-30 EC nullFlavo [facility] [id number] Memoria 22:36:00 00:38:[address] 2014-05-29 2014-05-29 Outpatient Paul, 2.16.840. 2.16.840.1. 4 [id number] 16:36:00 18:38:00 Dhaval [id number] 05 Justin-Nam 3.615.0.1 5.0.292 30 2943-12-17 2014-05-01 OP Therapy nullFlavo [facility] [id number] Memoria 22:48:00 05:59:00 Patients r [facility] 03 [facility] 2014-04-01 2014-04-30 Outpatient Younas, 2.16.840. 2.16.840.1. 4 [id number] 16:48:00 23:59:00 Gm [id number] 03 Ahmed 3.615.0.1 5.0.221 82 4567-11-24 2014-03-10 Outpatient nullFlavo [facility] [id number] Memoria 14:57:00 05:59:00 r Ady 04 l [facility] 2014-03-09 2014-03-09 Outpatient Younas, 2.16.840. 2.16.840.1. 4 [id number] 08:57:00 23:59:00 Gm [id number] 04 Ahmed 3.615.0.1 5.0.920 94 0207-10-19 2014-02-01 EC nullFlavo [facility] [id number] Memoria 13:17:00 15:41:00 Emergency r Ady 03 l [facility] 2014-02-01 2014-02-01 Outpatient Paul, 2.16.840. 2.16.840.1. 4 [id number] 08:17:00 10:41:00 Dhaval [id number] 03 Justin-Nam 3.615.0.1 5.0.022 01 5452-12-30 2013-04-14 Outpatient 2.16.840. 2.16.840.1. 4 [id number] Memoria 10:02:00 23:59:00 [id number]. [id number] 02 3.615.0.[address] 2013-04-14 2013-04-14 DS nullFlavo [facility] [id number] Memoria 10:02:00 10:02:00 r Medical 02 l [place] [facility] 2013-02-17 2013-02-17 Outpatient nullFlavo [facility] [id number] Memoria 12:45:00 12:45:00 r Medical 08 l [facility] Results Test Description Test Time Test Comments Results Result Comments Source CBC WITH DIFF 2022-07-21 13:30:37 Test Item Value Reference Range Interpretation Comme nts WBC (test code = 6690-2) 4.98 See_Comment [A utomated message] The system which ge nerated this result transmit lucretia reference range: 4.20 - 1 0.70 10*3/?L. The reference r felix was not used to interpr et this result as normal/abnor mal. RBC (test code = 789-8) 5.36 See_Comment [Au tomated message] The system which ge nerated this result transmit lucretia reference range: 4.26 - 5 .52 10*6/?L. The reference r felix was not used to interpr et this result as normal/abnor mal. HGB (test code = 718-7) 15.2 g/dL 12.2-16.4 HCT (test code = 4544-3) 46.8 % 38.4-49.3 MCV (test code = 787-2) 87.3 fL 81.7-95.6 MCH (test code = 785-6) 28.4 pg 26.1-32.7 MCHC (test code = 786-4) 32.5 g/dL 31.2-35.0 RDW-SD (test code = 04976-6) 39.1 fL 38.5-51.6 RDW-CV (test code = 788-0) 12.2 % 12.1-15.4 PLT (test code = 777-3) 190 See_Comment [Au tomated message] The system which ge nerated this result transmit lucretia reference range: 150 - 32 8 10*3/?L. The reference range was not used to interpret th is result as normal/abnormal . MPV (test code = 81906-6) 10.9 fL 9.8-13.0 NRBC/100 WBC (test code = 0.0 See_Comment [ Automated message] The [id number]) system which ge nerated this result transmit lucretia reference range: 0.0 - 10 .0 /100 WBCs. The reference r felix was not used to interpr et this result as normal/abnor mal. NRBC x10^3 (test code = See_Comment [Au tomated message] The [id number]) system which ge nerated this result transmit lucretia reference range: 10*3/?L. The reference range was not u sed to interpret this result as normal/abnormal . GRAN MAT (NEUT) % (test code 58.3 % = 770-8) IMM GRAN % (test code = 0.20 % [id number]) LYMPH % (test code = 736-9) 34.5 % MONO % (test code = 5905-5) 5.8 % EOS % (test code = 713-8) 0.8 % BASO % (test code = 706-2) 0.4 % GRAN MAT x10^3(ANC) (test 2.90 10*3/uL 1.99-6.95 code = 2352170736) IMM GRAN x10^3 (test code = 0.00-0.06 [id number]) LYMPH x10^3 (test code = 1.72 10*3/uL 1.09-3.23 731-0) MONO x10^3 (test code = 0.29 10*3/uL 0.36-1.02 L 742-7) EOS x10^3 (test code = 0.04 10*3/uL 0.06-0.53 L 711-2) BASO x10^3 (test code = 0.01-0.09 704-7) Lab Interpretation (test Abnormal code = 03871-8) [facility]00 Test Item Value Reference Range Interpretation Comments Hgb (test code = Hgb) 13.3 11.5-15.5 [facility]-27 15:10:00 Test Item Value Reference Range Interpretation Comments Hct (test code = Hct) 39.9 34.5-46.5 [facility] [id number] 17:22:00 Test Item Value Reference Range Interpretation Comments ABO/Rh (test code = ABO/Rh) A POS [facility]
--- NOTE | 2023-01-05 16:24 | RAD REPORT ---
EXAM DESCRIPTION: RAD - Knee Left 3 View - 01/05/2023 4:04 pm CLINICAL HISTORY: Left knee pain FINDINGS: No fracture or dislocation is seen.
--- NOTE | 2023-01-05 16:32 | EDPHYS ---
Physician Documentation [facility] Name: Andra Martinez Age: 22 yrs Sex: Male : 2000 Arrival Date: 01/05/2023 Time: 15:37 Bed 11 Private MD: ED Physician Carlos Marcano HPI: 01/05 15:54 This 22 yrs old Male presents to ER via Ambulatory with complaints of Knee rn Pain. 15:54 The patient presents with decreased range of motion, an injury, pain. The complaints rn affect the left knee. Onset: The symptoms/episode began/occurred 2 day(s) ago. Modifying factors: The symptoms are alleviated by nothing. the symptoms are aggravated by movement, weight bearing, bending knee. Associated signs and symptoms: Pertinent negatives warmth, weakness. Severity of symptoms: At their worst the symptoms were moderate, in the emergency department the symptoms are unchanged. The patient has not experienced similar symptoms in the past. Patient reports was bending down to get something off the shelf and when stood up felt pain and heard a pop coming from the left knee. Denies weakness. Pain with range of motion. Has had problems with right knee in the past. No fall or direct trauma. Leg was never locked up.. Historical: - Allergies: 15:52 No Known Allergies; cm10 - Home Meds: 15:52 None [Active]; cm10 - PMHx: 15:52 None; cm10 - PSHx: 15:52 None; cm10 - Immunization history:: Adult Immunizations up to date. - Social history:: Smoking status: Patient denies any tobacco usage or history of. - Family history:: not pertinent. - Hospitalizations: : No recent hospitalization is reported. 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 Neurovascular intact. Able to ambulate. Patella is midline. No tenderness to palpation. No appreciable knee effusion. No discoloration or warmth. No open wounds. Vital Signs: 15:45 BP 152 / 104; Pulse 94; Resp 18 S; Temp 98.4(TE); Pulse Ox 100% on R/A; Weight 98.34 cm10 kg; Height 5 ft. 6 in. ; Pain 8/10; 15:53 BP 139 / 94; cm10 15:45 Body Mass Index 34.99 (98.34 kg, 167.64 cm) cm10 15:45 Pain Scale: Adult cm10 MDM: 15:42 Patient medically screened. rn 16:30 Differential diagnosis: Tendon injury, ligament injury, avulsion injury, fracture. Data rn reviewed: vital signs, nurses notes, radiologic studies, plain films, and as a result, I will discharge patient. Counseling: I had a detailed discussion with the patient and/or guardian regarding the historical points, exam findings, and any diagnostic results supporting the discharge/admit diagnosis, radiology results, the need for outpatient follow up, to return to the emergency department if symptoms worsen or persist or if there are any questions or concerns that arise at home. Special discussion: I discussed with the patient/guardian in detail that at this point there is no indication for admission to the hospital. It is understood, however, that if the symptoms persist or worsen the patient needs to return immediately for re-evaluation. Based on the history and exam findings, there is no indication for further emergent testing or inpatient evaluation. I discussed with the patient/guardian the need to see the orthopedic surgeon for further evaluation of the symptoms. 16:31 Special discussion: Further emergent ED testing is not indicated at this point in time. rn I discussed with the patient/guardian in detail the need to arrange with the PCP or specialist further outpatient testing, MRI. 01/05 15:53 Order name: XRAY Knee LEFT 3 view; Complete Time: 16:30 rn 01/05 15:53 Order name: Knee Immobilizer; Complete Time: 16:39 rn 01/05 15:53 Order name: Crutches; Complete Time: 16:39 rn Administered Medications: No medications were administered Disposition Summary: 01/05/23 16:32 Discharge Ordered Notes: Location: Home rn Problem: new rn Symptoms: have improved rn Condition: Stable rn Diagnosis - Unspecified internal derangement of left knee rn Followup: rn - With: Private Physician - When: As needed - Reason: Recheck today's complaints, Re-evaluation by your physician Discharge Instructions: - Discharge Summary Sheet rn - Knee Sprain, Adult rn Forms: - Medication Reconciliation Form rn - Thank You Letter rn - Antibiotic rn maternal child - Prescription Opioid Use rn - Patient Portal Instructions rn - Leadership Thank You Letter rn - Work release form hb Prescriptions: - Diclofenac Sodium 75 mg Oral tablet, delayed release (enteric coated) - take 1 tablet ORAL route 2 times per day; 20 tablet; Refills: 0, Product rn Selection Permitted Signatures: Dispatcher [employer] Carlos Campos MD MD rn Iris Stiles RN RN 10
--- NOTE | 2023-01-05 16:32 | ER ---
Nurse's Notes [facility] Name: Andra Martinez Age: 22 yrs Sex: Male : 2000 Arrival Date: 01/05/2023 Time: 15:37 Bed 11 Private MD: Diagnosis: Unspecified internal derangement of left knee Presentation: 01/05 15:45 Chief complaint: Patient states: left knee pain onset while at work 2 days ago. Pt cm10 states that he was squatting and he felt a crack and pop. Pt states taking medicine for pain with no relief. Coronavirus screen: Vaccine status: Patient reports receiving the 2nd dose of the covid vaccine. Ebola Screen: Patient denies travel to an Ebola-affected area in the 21 days before illness onset. No symptoms or risks identified at this time. Initial Sepsis Screen: Does the patient meet any 2 criteria? No. Patient's initial sepsis screen is negative. Does the patient have a suspected source of infection? No. Patient's initial sepsis screen is negative. Risk Assessment: Do you want to hurt yourself or someone else? Patient reports no desire to harm self or others. Onset of symptoms was January 05, 2023. 15:45 Method Of Arrival: Ambulatory cm10 15:45 Acuity: JACKELYN 3 cm10 Triage Assessment: 15:53 General: Appears in no apparent distress. comfortable, Behavior is calm, cooperative. cm10 Pain: Complains of pain in left knee Pain currently is 8 out of 10 on a pain scale. at worst was 10 out of 10 on a pain scale. Pain began 2-3 days ago. Neuro: No deficits noted. Level of Consciousness is awake, alert, obeys commands, Oriented to person, place, time, situation. Respiratory: No deficits noted. Airway is patent Respiratory effort is even, unlabored, Respiratory pattern is regular, symmetrical. Musculoskeletal: Reports pain in left knee. Historical: - Allergies: 15:52 No Known Allergies; cm10 - Home Meds: 15:52 None [Active]; cm10 - PMHx: 15:52 None; cm10 - PSHx: 15:52 None; cm10 - Immunization history:: Adult Immunizations up to date. - Social history:: Smoking status: Patient denies any tobacco usage or history of. - Family history:: not pertinent. - Hospitalizations: : No recent hospitalization is reported. Screenin:54 [facility] ED Fall Risk Assessment (Adult) History of falling in the last 3 months, cm10 including since admission No falls in past 3 months (0 pts) Confusion or Disorientation No (0 pts) Intoxicated or Sedated No (0 pts) Impaired Gait Yes (1 pt) Mobility Assist Device Used Yes (1 pt) Altered Elimination No (0 pt) Score/Fall Risk Level 0 - 2 = Low Risk Oriented to surroundings, Maintained a safe environment, Hourly rounding (assess needs \T\ fall precautionary measures) done. Abuse screen: Denies threats or abuse. Denies injuries from another. Nutritional screening: No deficits noted. Tuberculosis screening: No symptoms or risk factors identified. Assessment: 16:00 General: Appears in no apparent distress. Behavior is calm, cooperative. Pain: Pain hb currently is 8 out of 10 on a pain scale. Neuro: Level of Consciousness is awake, alert, obeys commands, Oriented to person, place, time, situation. Cardiovascular: Patient's skin is warm and dry. Respiratory: Respiratory effort is even, unlabored, Respiratory pattern is regular, symmetrical. GI: No signs and/or symptoms were reported involving the gastrointestinal system. : No signs and/or symptoms were reported regarding the genitourinary system. EENT: No signs and/or symptoms were reported regarding the EENT system. Derm: Skin is pink, warm \T\ dry. Musculoskeletal: Reports left knee pain. Vital Signs: 15:45 BP 152 / 104; Pulse 94; Resp 18 S; Temp 98.4(TE); Pulse Ox 100% on R/A; Weight 98.34 cm10 kg; Height 5 ft. 6 in. ; Pain 8/10; 15:53 BP 139 / 94; cm10 15:45 Body Mass Index 34.99 (98.34 kg, 167.64 cm) cm10 15:45 Pain Scale: Adult cm10 ED Course: 15:41 Patient arrived in ED. gm2 15:42 Carlos Marcano MD is Attending Physician. rn 15:52 Triage completed. cm10 15:54 Arm band placed on Patient placed in an exam room, on a stretcher. cm10 15:54 Patient has correct armband on for positive identification. Bed in low position. Call cm10 light in reach. Side rails up X 1. Provided Education on: ED process and Procedures.. 16:06 XRAY Knee LEFT 3 view In Process Unspecified. EDMS 16:55 No provider procedures requiring assistance completed. Patient did not have IV access hb during this emergency room visit. 16:56 Susanne Barrett, RN is Primary Nurse. hb Administered Medications: No medications were administered Medication: 15:54 VIS not applicable for this client. cm10 Outcome: 16:32 Discharge ordered by . rn 16:55 Discharged to home ambulatory, with family, 16:55 Condition: stable 16:55 Discharge instructions given to patient, Instructed on discharge instructions, follow up and referral plans. medication usage, crutch walking, Demonstrated understanding of instructions, follow-up care, medications, crutch walking, Prescriptions given X 1, 16:56 Patient left the ED. hb Signatures: Dispatcher [employer] EDMS Carlos Marcano MD MD rn Baxter, Heather, RN RN Iris Bautista RN RN Arabella Cummins 2
[2023-01-05 17:22] VITALS: TEMP 98.4; O2SAT 100
[2023-01-05 17:24] VITALS: BP 139/94
== END 2023-01-05 16:56 | disposition home or self-care (01) ==
LOC: ER 15:37
DX: M23.92 Unspecified internal derangement of left knee (principal)
CPT/HCPCS: 99283